=== PATIENT | female | born 1990 | race Hispanic/Latino ===

== ENCOUNTER 2019-03-21 23:00 | Emergency (ER) | payer OTHER ==
[~2019-03-21] VITALS: Ht 165.1 cm; Wt 66.2 kg
[~2019-03-21 23:00] MED LIST: BACTRIM DS TAB1 EACH PO; IBUPROFEN600 MG; KEFLEX500 MG PO; NORCO 5-325 TA1 EACH; NORCO 5-325 TA1 EACH PO; PRENATAL ONE T1 EACH PO
[2019-03-21] MEDS ORDERED: PRENATAL TABLE1 EAC3 PO (23:20)
== END 2019-03-21 23:30 | disposition home or self-care (01) ==
LOC: ED 23:00
DX: O9A.212 Injury, poisoning and certain other consequences of external causes complicating pregnancy, second trimester (principal); S76.011A Strain of muscle, fascia and tendon of right hip, initial encounter; X50.1XXA Overexertion from prolonged static or awkward postures, initial encounter; Z3A.18 18 weeks gestation of pregnancy
CPT/HCPCS: 99283

== ENCOUNTER 2019-08-15 12:00 | Inpatient (IN) | payer OTHER ==
[~2019-08-15] VITALS: Ht 165.1 cm; Wt 81.0 kg
[~2019-08-15 12:00] MED LIST changes: +PRENATAL TABLE1 EAC3 PO
--- NOTE | 2019-08-15 17:49 | NUR ---
08/15/19 174 Adelia Hubbard 1724 PT ARRIVED IN PACU WIDE AWAKE WITH NO C/O'S. FBC RN WITH BABY. AT BEDSIDE. 1740 MOTHER FEEDING BABY VIA BOTTLE. NO C/O'S.
--- NOTE | 2019-08-16 12:49 | PR ---
[facility] [address] [facility] [place], [place] [address] Signed PP Progress Notes Datetime Report Generated by CPN: 08/16/2019 12:49 SUBJECTIVE: [id number] Pain: Within normal limits Nausea/Vomiting: Denies Vital Signs: [id number] Vital Signs: Reviewed; Within Normal Limits EXAM: [id number] Cardiovascular: Normal Respiratory: Normal Abdomen/Uterus: Abnormal Lochia: Normal Vulva/Perineum: Not Done Breasts: Not Done CVA Tenderness: Not Done Extremities: Normal Incision: Normal Progress: Normal Exam Comments: Abdomen with active BS. Fundus firm, sl tender at U-1. H/H 11.4/32.8, WBC 12.2, plat 153k IMPRESSION/PLAN/PROCEDURES: [id number] Impression: Normal progression Other Plans: D/C IV, ambulate, shower Progress Notes: Doing well. She is feeling much improved from last pm. Signing Physician: Adeola Tracey MD Copies: ~ *Electronically Signed* 08/16/19 1249 ADEOLA TRACEY MD PATIENT NAME: DEL TORO,RAYO PROGRESS NOTE DATE OF : 89 PHYSICIAN: ADEOLA TRACEY MD RPT #: [id number] REPORT IS CONFIDENTIAL AND NOT TO BE RELEASED WITHOUT AUTHORIZATION
--- NOTE | 2019-08-17 09:00 | PR ---
[facility] [address] [facility] [place], [place] [address] Signed PP Progress Notes Datetime Report Generated by CPN: 08/17/2019 09:00 SUBJECTIVE: [id number] Pain: Within normal limits Nausea/Vomiting: Denies Flatus: Yes Vital Signs: [id number] Vital Signs: Reviewed; Within Normal Limits EXAM: [id number] Cardiovascular: Normal Respiratory: Normal Abdomen/Uterus: Abnormal Lochia: Normal Vulva/Perineum: Not Done Breasts: Not Done CVA Tenderness: Not Done Extremities: Normal Incision: Normal Progress: Normal Exam Comments: Abdomen with active BS. Fundus firm, sl tender @ U-1. IMPRESSION/PLAN/PROCEDURES: [id number] Impression: Normal progression Plan: Remove hosea; Discharge Other Plans: D/C IV, ambulate, shower Procedures: None Progress Notes: Doing well. She would like D/C later today. Signing Physician: Adeola Tracey MD Copies: ~ *Electronically Signed* 08/17/19 09 ADEOLA TRACEY MD PATIENT NAME: RAYO DEL TORO PROGRESS NOTE DATE OF : 89 PHYSICIAN: ADEOLA TRACEY MD RPT #: [id number] REPORT IS CONFIDENTIAL AND NOT TO BE RELEASED WITHOUT AUTHORIZATION
--- NOTE | 2019-08-17 09:31 | OR ---
[facility] [address] [place], [place] [address] Signed DATE OF OPERATION: 08/15/2019 SURGEON: Toshia Tracey MD LEAD ETL DEVELOPER: Dr. Navarro. PREOPERATIVE DIAGNOSES: Term , previous section, preeclampsia, active labor. POSTOPERATIVE DIAGNOSIS: Term , previous section, preeclampsia, active labor, abdominal adhesions, delivered ANESTHESIA: Spinal. PROCEDURES: Repeat and lysis of adhesions. DRAINS: Rod catheter. ESTIMATED BLOOD LOSS: 500 mL. INDICATIONS AND FINDINGS: The patient is a 29-year-old female, 3, para 0-2-0-2, admitted at 38 and 6/7th weeks in active labor. The patient was also found to be preeclamptic on her evaluation. She progressed during a course of observation to 4 to 5 cm and had spontaneous rupture of membranes. Her blood pressures were elevated, though she did not have any in the severe range. She was counseled and taken to repeat , which had been previously scheduled for the . She was delivered of a little boy from the ROP position via lower segment transverse uterine incision with Apgars of 9 and 9 and weight of 7 pounds 8 ounces. There were adhesions of the omentum to the anterior abdominal wall, and over the left side of the uterus. The bladder was adhesed high over the anterior uterus. DESCRIPTION OF PROCEDURE: The patient was prepped and draped in the supine position. A Pfannenstiel skin incision Electronically Signed By: TOSHIA TRACEY MD 08/17/19 0931 PATIENT NAME: RAYO DEL TORO OPERATIVE REPORT DATE OF : 89 REPORT #: [id number] PHYSICIAN: TOSHIA TRACEY MD PCP: ARASH TRAYLOR REPORT IS CONFIDENTIAL AND NOT TO BE RELEASED WITHOUT AUTHORIZATION [facility] [address] [place], [place] [address] Signed was made, carried down through the fascia and the incision was extended laterally. The inferior and superior fascial flaps were then created. The peritoneum was opened sharply during this dissection and the significant scarring was noted at that time. Incision in the peritoneum was carried down from the upper aspect inferiorly. There was a thick band in the peritoneum which was also incised. The bladder was found to be high over the anterior uterine wall and this was incised allowing the bladder to drop down further off the anterior abdominal wall. There were also adhesions to the left aspect of the uterus. As the lower segment was clear, the incision was made with a knife and the baby was delivered with the above findings and handed off to the pediatric staff in attendance. There was a nuchal cord x2. The placenta was removed and the uterus explored manually assuring that there were no retained fragments. The edges of the incision were identified and the uterus was closed in 2 layers using #0 Monocryl. The first layer was a running locking stitch and the second was a vertical imbricating stitch. The abdomen was then copiously irrigated and good hemostasis was noted. An ACell patch was laid over the lower segment to aid in healing. Further evaluation of the adhesions on the patient's left side revealed that these were fairly thick and extensive and then decision was made not to incise these. The peritoneum was not closed because of the adhesions and the muscles were brought together with interrupted sutures of 0 Vicryl in the midline. The ACell powder was sprinkled over the muscles to aid in healing. The fascia was then closed from each angle to the midline with running suture of 0 Vicryl. The subcutaneous tissue was irrigated and bleeding points controlled with cautery. Interrupted sutures of 3-0 Vicryl were used to reapproximate the subcu. The skin was closed with hosea. All sponge and needle counts were correct. She tolerated procedure well and was taken to the recovery room in good condition. Toshia Tracey MD PJW/MODL /[id number] cc: Dr. Navarro Copies: Electronically Signed By: TOSHIA TRACEY MD 08/17/19 0931 PATIENT NAME: RAYO DEL TORO OPERATIVE REPORT DATE OF : 89 REPORT #: [id number] PHYSICIAN: TOSHIA TRACEY MD PCP: ARASH TRAYLOR REPORT IS CONFIDENTIAL AND NOT TO BE RELEASED WITHOUT AUTHORIZATION [facility] [address] [place] [address] N[place] [address] Signed ~ Electronically Signed By: TOSHIA TRACEY MD 08/17/19 0931 PATIENT NAME: RAYO DEL TORO OPERATIVE REPORT DATE OF : 89 REPORT #: [id number] PHYSICIAN: TOSHIA TRACEY MD PCP: ARASH TRAYLOR REPORT IS CONFIDENTIAL AND NOT TO BE RELEASED WITHOUT AUTHORIZATION
== END 2019-08-17 18:20 | disposition home or self-care (01) | DRG 788 ==
LOC: FBCO 12:00 → FBC 15:35
PROVIDERS: ADMIT Obstetrics & Gynecology
PROC: 10D00Z1 Extraction of Products of Conception, Low, Open Approach (ICD-10-PCS; principal; 2019-08-15 16:15)
DX: O34.211 Maternal care for low transverse scar from previous cesarean delivery (principal); N85.8 Other specified noninflammatory disorders of uterus; Z3A.38 38 weeks gestation of pregnancy; Z37.0 Single live birth; O14.94 Unspecified pre-eclampsia, complicating childbirth; O69.81X0 Labor and delivery complicated by cord around neck, without compression, not applicable or unspecified; Z86.19 Personal history of other infectious and parasitic diseases
CPT/HCPCS: 01961; 36415; 59025; 82565; 82570; 84156; 84450; 84520; 84550; 85025; 85027; 99213; J0690; J1644; J1885; J2274; J2370; J2405; J2590; J2765; J7120